=== PATIENT | male | born 1940 | race Hispanic/Latino ===

== ENCOUNTER → 2019-05-10 | Outpatient (CLI) | payer MEDICARE, OTHER ==
[~2019-05-10] MED LIST: Z.0.ACTOS45 MG PO; Z.0.AZOR 5-40 MG T1 PO; Z.0.B-121000 MCG; Z.0.GLIMEPIRIDE4 MG PO; Z.0.SIMVASTATIN80 MG PO; Z.1.METFORMIN HCL100 PO
--- NOTE | 2019-05-10 10:36 | Diagnostic Imaging Report ---
Chest, 2 views, 05/10/2019. History: Pneumonia. Comparison: None available. Findings: The cardiomediastinal silhouette and pulmonary vasculature are within normal limits. There is elevation of the left hemidiaphragm. Ill-defined basilar opacities are present. The upper lungs are clear. There are no acute osseous or soft tissue abnormalities. Impression: Ill-defined bibasilar opacities. Signed by: Adam Cha on 05/10/2019 10:33 AM
== END ==
LOC: RAD 09:52
PROVIDERS: ATTEND Family Medicine
DX: J18.9 Pneumonia, unspecified organism (principal)
CPT/HCPCS: 71046

== ENCOUNTER 2021-09-30 12:10 | Emergency (ER) | payer MEDICARE, OTHER ==
[~2021-09-30] VITALS: Ht 172.7 cm; Wt 87.5 kg
[2021-09-30] MEDS ORDERED: SODIUM CHLORIDE 0.9% 500ML 500 ML IV STA (12:27)
[2021-09-30] MEDS ORDERED: LIDOCAINE 4% PATCH TP STA (12:27)
[2021-09-30] MEDS ORDERED: KETOROLAC TROMETHAMINE 30 MG/ML VIAL IV STA (12:27)
[2021-09-30 12:46] LABS: BASOPHILS % 0.4 % (0.0-1.0); EOSINOPHILS % 0.1 % (0.0-6.0); HEMATOCRIT 33.4 % (38.2-49.6); HEMOGLOBIN 10.8 g/dL (14.0-18.0); LYMPHOCYTES # (AUTO) 1.2 (1.0-3.2); MEAN CORPUSCULAR HEMOGLOBIN 30.1 pg (28-32); MEAN CORPUSCULAR HGB CONC 32.3 g/dL (31-35); MONOCYTES # (AUTO) 0.5 (0.2-0.8); NEUTROPHILS # (AUTO) 5.9 (2.1-6.9); NEUTROPHILS % 76.1 % (38.7-80.0); PLATELET COUNT 252 x10e3/uL (140-360); RED BLOOD COUNT 3.59 x10e6/uL (4.3-5.7); RED CELL DISTRIBUTION WIDTH 14.9 % (11.7-14.4)
[2021-09-30 13:09] LABS: ALBUMIN 3.6 g/dL (3.5-5.0); ANION GAP 15.9 mmol/L (8-16); CALCIUM 8.9 mg/dL (8.4-10.2); CREATININE, SERUM 1.43 mg/dL (0.72-1.25); POTASSIUM 3.9 mmol/L (3.5-5.1)
[2021-09-30 13:35] LABS: CLARITY,URINE CLEAR (CLEAR); COLOR,URINE YELLOW (YELLOW); LEUKOCYTE ESTERASE ,URINE NEGATIVE (NEGATIVE); NITRITE,URINE NEGATIVE (NEGATIVE); PROTEIN,URINE DIPSTICK 1+ (NEGATIVE)
[2021-09-30 13:36] LABS: BACTERIA,URINE MODERATE /HPF; EPITHELIAL CELLS,URINE MODERATE /LPF; KETONES,URINE 1+ (NEGATIVE); URINE UROBILINOGEN 0.2 mg/dL (0.2 - 1)
[2021-09-30 13:37] LABS: RENAL EPITHELIAL CELLS,URINE FEW
[2021-09-30] MEDS ORDERED: IOPAMIDOL 370 MG/ML 200 ML INFUS..BTL INJ ONE (13:46)
[2021-09-30] MEDS ORDERED: SODIUM CHLORIDE 0.9% 100 ML ONE (13:46)
[2021-09-30] MEDS ORDERED: CEPHALEXIN500 MG PO (13:51)
[2021-09-30] MEDS ORDERED: LIDOCAINE1 EAC1 EXT (15:15)
== END 2021-09-30 15:49 | disposition home or self-care (01) ==
LOC: ER 12:50
DX: N39.0 Urinary tract infection, site not specified (principal); M54.50 Low back pain, unspecified; I10 Essential (primary) hypertension; E11.9 Type 2 diabetes mellitus without complications; E78.5 Hyperlipidemia, unspecified; Z79.84 Long term (current) use of oral hypoglycemic drugs; Z79.899 Other long term (current) drug therapy; Z87.891 Personal history of nicotine dependence
CPT/HCPCS: 36415; 71045; 74174; 80053; 81001; 83690; 84484; 85025; 93005; 99284; J1885; J7040; J7050; Q9967